=== PATIENT | female | born 1940 | race Caucasian/White ===

== ENCOUNTER → 2024-06-28 | Day surgery (SDC) | payer MEDICARE ==
[~2024-06-28] VITALS: Ht 154.9 cm; Wt 51.7 kg
[~2024-06-28] MED LIST: BALANCED SALT IRRIG SOLN 15ML ONE; GLIP5TAB22 PO; LIDOCAINE HCL 1% 10 MG/ML 10ML VIAL ONE; LIP40 PO; LOSA100T33 PO; METF-414 PO; MIDAZOLAM HCL 2 MG/2 ML VIAL ONE; PROPOFOL 200MG/20ML VIAL IV ONE; TRIAMCINOLONE ACETONIDE 40MG/ML 1ML VIAL ONE; VALS1TAB75 PO
[2024-06-28 06:35] LABS: POTASSIUM 4.4 mEq/L (3.5-5.1)
[2024-06-28 06:36] LABS: CALCIUM 10.2 mg/dL (8.7-10.4)
[2024-06-28 06:41] LABS: CREATININE 1.2 mg/dL (0.6-1.0)
[2024-06-28] MEDS: SODIUM CHLORIDE 0.9% 1,000 ML IV SCH (07:08)
== END | disposition home or self-care (01) ==
LOC: OR 05:46
PROVIDERS: ATTEND Ophthalmology
DX: H11.001 Unspecified pterygium of right eye (principal); I10 Essential (primary) hypertension; E78.5 Hyperlipidemia, unspecified; E11.9 Type 2 diabetes mellitus without complications; Z79.84 Long term (current) use of oral hypoglycemic drugs; Z79.899 Other long term (current) drug therapy; Z98.890 Other specified postprocedural states; Z88.0 Allergy status to penicillin
CPT/HCPCS: 65420; 80048; 36415; 93005; J3490 ×2; J2003 ×2; J2250; J2704; J3301